=== PATIENT | female | born 1990 | race Caucasian/White ===

== ENCOUNTER 2018-09-04 12:13 | Emergency (ER) | payer SELFPAY ==
[~2018-09-04] VITALS: Ht 149.9 cm; Wt 55.8 kg
[2018-09-04 12:19] VITALS: Ht 149.9 cm; Wt 55.8 kg
[2018-09-04 14:34] VITALS: BP 124/70
== END 2018-09-04 14:34 | disposition home or self-care (01) ==
LOC: ED 12:13
DX: S09.8XXA Other specified injuries of head, initial encounter (principal); S16.1XXA Strain of muscle, fascia and tendon at neck level, initial encounter; V48.5XXA Car driver injured in noncollision transport accident in traffic accident, initial encounter; Y93.I9 Activity, other involving external motion; Y92.411 Interstate highway as the place of occurrence of the external cause; Y99.8 Other external cause status
CPT/HCPCS: J1885